=== PATIENT | female | born 1975 | race Caucasian/White ===

== ENCOUNTER → 2016-09-09 | Outpatient (CLI) | payer MEDICAID ==
--- NOTE | 2016-09-11 08:36 | MM ---
Reason for exam: screening (asymptomatic). Last mammogram was performed 1 year and 3 months ago. History: Patient had first child at age 35. Benign right mammotome panel of the right breast, November 10, 2009. Taking hormonal contraceptives for 14 years beginning at age 20. Physical Findings: A clinical breast exam by your physician is recommended on an annual basis and results should be correlated with mammographic findings. MG 3D Screening Mammo W/Cad Bilateral CC and MLO view(s) were taken. Prior study comparison: May 31, 2015, bilateral MG screening mammo w CAD. June 18, 2012, CAD bilateral diagnostic mammogram. September 25, 2009, bilateral digital screening mammogram. The breast tissue is heterogeneously dense. This may lower the sensitivity of mammography. Previous mammotome biopsy in the right breast. No significant changes when compared with prior studies. ASSESSMENT: Negative, BI-RAD 1 RECOMMENDATION: Routine screening mammogram of both breasts in 1 year.
== END | disposition home or self-care (01) ==
LOC: RADMAMWWP 08:09
PROVIDERS: ATTEND Family Medicine
DX: Z12.31 Encounter for screening mammogram for malignant neoplasm of breast (principal)
CPT/HCPCS: 77063; G0202

== ENCOUNTER → 2016-09-18 | Outpatient (CLI) | payer MEDICAID ==
[2016-09-18 10:58] LABS: Follicle Stimulating Hormone 7.3 mIU/mL; Prolactin 13.1 ng/mL (3.0-18.6)
== END | disposition home or self-care (01) ==
LOC: LABWHC1 09:10
PROVIDERS: ATTEND Internal Medicine Endocrinology, Diabetes & Metabolism
DX: E03.8 Other specified hypothyroidism (principal); R53.83 Other fatigue
CPT/HCPCS: 36415; 82306; 82533; 82607; 83001; 84146

== ENCOUNTER → 2017-09-10 | Outpatient (CLI) | payer MEDICAID | END | disposition home or self-care (01) | LOC: LABWHC1 09:06 | PROVIDERS: ATTEND Internal Medicine Endocrinology, Diabetes & Metabolism | DX: E03.8 Other specified hypothyroidism (principal) | CPT/HCPCS: 36415; 84443 ==

== ENCOUNTER → 2017-11-21 | Outpatient (CLI) | payer MEDICAID | END | disposition home or self-care (01) | LOC: LABWHC1 13:06 | PROVIDERS: ATTEND Dermatology Dermatopathology | DX: L40.0 Psoriasis vulgaris (principal); Z79.899 Other long term (current) drug therapy | CPT/HCPCS: 36415; 86480 ==

== ENCOUNTER → 2018-04-30 | Outpatient (CLI) | payer MEDICAID | LOC: LABWHC1 10:01 | PROVIDERS: ATTEND Internal Medicine Endocrinology, Diabetes & Metabolism | DX: E03.8 Other specified hypothyroidism (principal) | CPT/HCPCS: 36415; 84443 ==

== ENCOUNTER → 2018-11-17 | Outpatient (CLI) | payer MEDICAID | END | disposition home or self-care (01) | LOC: LABWHC1 15:14 | PROVIDERS: ATTEND Internal Medicine Endocrinology, Diabetes & Metabolism | DX: E03.8 Other specified hypothyroidism (principal) | CPT/HCPCS: 36415; 84443 ==

== ENCOUNTER → 2018-12-24 | Outpatient (CLI) | payer MEDICAID | END | disposition home or self-care (01) | LOC: LABWHC1 15:28 | PROVIDERS: ATTEND Dermatology Dermatopathology | DX: L40.0 Psoriasis vulgaris (principal); Z79.899 Other long term (current) drug therapy | CPT/HCPCS: 36415 ==

== ENCOUNTER → 2019-02-16 | Outpatient (CLI) | payer MEDICAID | END | disposition home or self-care (01) | LOC: LABWHC1 16:02 | PROVIDERS: ATTEND Internal Medicine Endocrinology, Diabetes & Metabolism | DX: E03.8 Other specified hypothyroidism (principal) | CPT/HCPCS: 36415; 84443 ==

== ENCOUNTER → 2019-03-24 | Outpatient (CLI) | payer MEDICAID ==
[2019-03-24 15:34] LABS: HGB 12.4 gm/dL (11.4-16.0); MCH 29.1 pg (25.0-35.0); MCHC 32.6 g/dL (31.0-37.0); MCV 89.2 fL (80.0-100.0); Mean Platelet Volume 7.9; Platelet Count 169 k/uL (150-450); RBC 4.26 m/uL (3.80-5.40); RDW 14.5 % (11.5-15.5); WBC 8.6 k/uL (3.8-10.6)
[2019-03-25 01:02] LABS: African American GFR (CKD) 90.1 (60.0-200.0); Albumin 3.9 g/dL (3.80-4.90); Albumin/Globulin Ratio 1.95 (1.60-3.17); Anion Gap 8.6 mmol/L (4.00-12.00); BUN/Creat Ratio 25.56 Ratio (12.00-20.00); Calcium 8.5 mg/dL (8.7-10.3); Carbon Dioxide 25.4 mmol/L (21.6-31.8); Potassium 4.4 mmol/L (3.5-5.5); Total Bilirubin 0.1 mg/dL (0.2-1.2); Total Protein 5.9 g/dL (6.2-8.2)
[2019-03-25 01:30] LABS: ACTH 19.7 pg/mL (0.00-45.99)
[2019-03-25 03:00] LABS: Thyroid Peroxidase Antibodies 52.2 U/mL (0.0-60.0)
== END | disposition home or self-care (01) ==
LOC: LABWHC1 15:13
PROVIDERS: ATTEND Internal Medicine Endocrinology, Diabetes & Metabolism
DX: E03.8 Other specified hypothyroidism (principal); R53.83 Other fatigue
CPT/HCPCS: 36415; 80053; 82024; 82533; 84146; 85027; 86376

== ENCOUNTER → 2019-06-16 | Outpatient (CLI) | payer MEDICAID ==
--- NOTE | 2019-06-18 11:14 | MM ---
Reason for exam: screening (asymptomatic). Last mammogram was performed 2 years and 9 months ago. History: Patient had first child at age 35. Benign right mammotome panel of the right breast, November 10, 2009. Taking hormonal contraceptives for 14 years beginning at age 20. Physical Findings: A clinical breast exam by your physician is recommended on an annual basis and results should be correlated with mammographic findings. MG 3D Screening Mammo W/Cad Bilateral CC and MLO view(s) were taken. Prior study comparison: September 09, 2016, bilateral MG 3d screening mammo w/cad. May 31, 2015, bilateral MG screening mammo w CAD. Stable benign calcifications. There is no discrete abnormality. No significant changes when compared with prior studies. ASSESSMENT: Benign, BI-RAD 2 RECOMMENDATION: Routine screening mammogram of both breasts in 1 year.
== END | disposition home or self-care (01) ==
LOC: RADMAMWWP 07:58
PROVIDERS: ATTEND Obstetrics & Gynecology
DX: Z12.31 Encounter for screening mammogram for malignant neoplasm of breast (principal)
CPT/HCPCS: 77063; 77067

== ENCOUNTER → 2019-08-03 | Outpatient (CLI) | payer MEDICAID ==
[2019-08-03 09:29] LABS: Basophils # (A) 0.1 k/uL (0-0.2); Basophils % (A) 1 %; Eosinophils # (A) 0.2 k/uL (0-0.7); Eosinophils % (A) 3 %; HCT 40.8 % (34.0-46.0); HGB 13.6 gm/dL (11.4-16.0); Lymphocytes # (A) 1.9 k/uL (1.0-4.8); Lymphocytes % (A) 30 %; MCH 29.6 pg (25.0-35.0); MCHC 33.4 g/dL (31.0-37.0); MCV 88.7 fL (80.0-100.0); Mean Platelet Volume 7.4; Monocytes # (A) 0.3 k/uL (0-1.0); Monocytes % (A) 4 %; Neutrophils # (A) 3.9 k/uL (1.3-7.7); Neutrophils % (A) 61 %; Platelet Count 202 k/uL (150-450); RDW 12.7 % (11.5-15.5); WBC 6.4 k/uL (3.8-10.6)
[2019-08-03 17:05] LABS: African American GFR (CKD) 103.2 (60.0-200.0); Albumin 4.1 g/dL (3.80-4.90); Albumin/Globulin Ratio 2.05 (1.60-3.17); Anion Gap 6.6 mmol/L (4.00-12.00); BUN/Creat Ratio 22.5 Ratio (12.00-20.00); Calcium 8.8 mg/dL (8.7-10.3); Carbon Dioxide 29.4 mmol/L (21.6-31.8); Chol/HDL Ratio 3.61; LDL Cholesterol,Calculated 95.8 mg/dL (0.0-131.0); Potassium 4.2 mmol/L (3.5-5.5); Total Bilirubin 0.4 mg/dL (0.2-1.2); Total Protein 6.1 g/dL (6.2-8.2); VLDL Calculation 24.2 mg/dL (5.00-40.00)
[2019-08-03 19:37] LABS: Hemoglobin A1C 5.4 % (4.0-6.0)
== END ==
LOC: LABWHC1 08:39
PROVIDERS: ATTEND Nurse Practitioner Family
DX: E03.9 Hypothyroidism, unspecified (principal); E55.9 Vitamin D deficiency, unspecified; R73.9 Hyperglycemia, unspecified
CPT/HCPCS: 36415; 80053; 80061; 82306; 83036; 84439; 84443; 85025

== ENCOUNTER → 2020-03-06 | Outpatient (CLI) | payer MEDICAID | END | disposition home or self-care (01) | LOC: LABWHC1 12:36 | PROVIDERS: ATTEND Dermatology Dermatopathology | DX: L40.0 Psoriasis vulgaris (principal); Z79.899 Other long term (current) drug therapy | CPT/HCPCS: 36415; 86480 ==

== ENCOUNTER → 2020-05-02 | Outpatient (CLI) | payer MEDICAID ==
[2020-05-02 14:10] LABS: Basophils # (A) 0.1 k/uL (0-0.2); Basophils % (A) 0 %; Eosinophils # (A) 0.2 k/uL (0-0.7); Eosinophils % (A) 1 %; HCT 43.3 % (34.0-46.0); HGB 13.9 gm/dL (11.4-16.0); Lymphocytes # (A) 1.9 k/uL (1.0-4.8); Lymphocytes % (A) 11 %; MCH 29.7 pg (25.0-35.0); MCHC 32.2 g/dL (31.0-37.0); MCV 92.4 fL (80.0-100.0); Mean Platelet Volume 7.4; Monocytes # (A) 0.7 k/uL (0-1.0); Monocytes % (A) 4 %; Neutrophils # (A) 14.7 k/uL (1.3-7.7); Neutrophils % (A) 84 %; Platelet Count 185 k/uL (150-450); RBC 4.68 m/uL (3.80-5.40); RDW 12.7 % (11.5-15.5); WBC 17.6 k/uL (3.8-10.6)
[2020-05-02 18:36] LABS: Erythrocyte Sedimentation Rate 59 mm/Hr (0-20)
[2020-05-02 20:20] LABS: African American GFR (CKD) 121.3 (60.0-200.0); Albumin/Globulin Ratio 1.74 (1.60-3.17); Anion Gap 10.9 mmol/L (4.00-12.00); BUN/Creat Ratio 15.71 Ratio (12.00-20.00); Carbon Dioxide 25.1 mmol/L (21.6-31.8); Globulin 2.3 g/dL (1.6-3.3); Non-African American GFR(CKD) 104.6 (60.0-200.0); Potassium 4.1 mmol/L (3.5-5.5); Total Bilirubin 0.5 mg/dL (0.3-1.2); Total Protein 6.3 g/dL (6.2-8.2)
== END | disposition home or self-care (01) ==
LOC: LABWHC1 13:01
PROVIDERS: ATTEND Internal Medicine
DX: K61.1 Rectal abscess (principal)
CPT/HCPCS: 36415; 80053; 85025; 85652

== ENCOUNTER → 2020-05-12 | Outpatient (CLI) | payer MEDICAID ==
--- NOTE | 2020-05-12 12:51 | CT ---
EXAMINATION TYPE: CT abdomen pelvis w con DATE OF EXAM: 05/12/2020 COMPARISON: None HISTORY: perirectal abscess CT DLP: 894.3 mGycm Automated exposure control for dose reduction was used. TECHNIQUE: Helical acquisition of images from the lung bases through the pelvis have been completed. CONTRAST: Performed with Oral Contrast and with IV Contrast, patient injected with 100 mL of Isovue 300. FINDINGS: There is an umbilical hernia containing fat. LUNG BASES: No significant abnormality is appreciated. AORTA: No significant abnormality is appreciated. LIVER/GB: No significant abnormality is appreciated. PANCREAS: No significant abnormality is seen. SPLEEN: No significant abnormality is seen. ADRENALS: No significant abnormality is seen. KIDNEYS: No significant abnormality is seen. REPRODUCTIVE ORGANS: No significant abnormality is seen, involuting follicle suspected within the ova sharita. Uterus is within normal limits. BOWEL: Mild rectal thickening is present. A discrete abscess is not identified.. Is no obstruction. 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 FREE AIR: No Free Air visible. ASCITES: None visible. PELVIC ADENOPATHY: None visualized. RETROPERITONEAL ADENOPATHY: No Retroperitoneal Adenopathy visible. URINARY BLADDER: Urinary bladder wall shows thickening, correlate to exclude cystitis. OSSEOUS STRUCTURES: No significant abnormality is seen. IMPRESSION: NONSPECIFIC WALL THICKENING ALONG THE RECTAL WALL COULD BE DUE TO LACK OF DISTENTION, MUSCULAR HYPERT ROPHY, INFLAMMATORY CHANGE, DISCRETE ABSCESS IS NOT IDENTIFIED WITH CERTAINTY. CORRELATE FOR CYSTITIS .
== END | disposition home or self-care (01) ==
LOC: RADCTMAIN 09:51
PROVIDERS: ATTEND Internal Medicine
DX: K62.89 Other specified diseases of anus and rectum (principal)
CPT/HCPCS: 74177; Q9967

== ENCOUNTER → 2020-11-23 | Outpatient (CLI) | payer MEDICAID ==
[2020-11-23 15:53] LABS: Basophils # (A) 0.07 X 10*3/uL (0.00-0.10); Basophils % (A) 0.8 %; Eosinophils # (A) 0.31 X 10*3/uL (0.04-0.35); Eosinophils % (A) 3.5 %; HCT 39.6 % (37.2-46.3); HGB 12.7 g/dL (12.0-15.0); Lymphocytes # (A) 2.15 X 10*3/uL (0.90-5.00); Lymphocytes % (A) 24.5 %; MCH 29.7 pg (27.0-32.0); MCHC 32.1 g/dL (32.0-37.0); MCV 92.5 fL (80.0-97.0); Mean Platelet Volume 10.3 fL (9.5-12.2); Monocytes # (A) 0.62 X 10*3/uL (0.20-1.00); Monocytes % (A) 7.1 %; Neutrophils # (A) 5.57 X 10*3/uL (1.80-7.70); Neutrophils % (A) 63.6 %; Platelet Count 188 X 10*3/uL (140-440); RBC 4.28 X 10*6/uL (4.10-5.20); RDW 13.1 % (11.5-14.5); WBC 8.76 X 10*3/uL (4.50-10.00)
[2020-11-23 19:56] LABS: African American GFR (CKD) 88.9 (60.0-200.0); BUN/Creat Ratio 14.44 Ratio (12.00-20.00); Calcium 8.4 mg/dL (8.7-10.3); Chol/HDL Ratio 3.77; LDL Cholesterol,Calculated 117.2 mg/dL (0.0-131.0); Non-African American GFR(CKD) 76.7 (60.0-200.0); Potassium 4.4 mmol/L (3.5-5.5); Total Bilirubin 0.5 mg/dL (0.2-1.2); VLDL Calculation 15.8 mg/dL (5.00-40.00)
[2020-11-23 22:09] LABS: Hemoglobin A1C 5.4 % (4.0-6.0)
== END | disposition home or self-care (01) ==
LOC: LABWHC1 08:34
PROVIDERS: ATTEND Internal Medicine
DX: I10 Essential (primary) hypertension (principal); E55.9 Vitamin D deficiency, unspecified; F41.9 Anxiety disorder, unspecified
CPT/HCPCS: 36415; 80053; 80061; 82306; 83036; 84443; 85025

== ENCOUNTER → 2021-01-04 | Outpatient (CLI) | payer MEDICAID ==
--- NOTE | 2021-01-08 09:11 | MM ---
Reason for exam: screening (asymptomatic). Last mammogram was performed 1 year and 7 months ago. History: Patient had first child at age 35. Benign right mammotome panel of the right breast, November 10, 2009. Took hormonal contraceptives for 14 years beginning at age 20. Physical Findings: A clinical breast exam by your physician is recommended on an annual basis and results should be correlated with mammographic findings. MG 3D Screening Mammo W/Cad Bilateral CC and MLO view(s) were taken. Prior study comparison: June 16, 2019, bilateral MG 3d screening mammo w/cad. September 09, 2016, bilateral MG 3d screening mammo w/cad. The breast tissue is heterogeneously dense. This may lower the sensitivity of mammography. Stable benign calcifications. There is no discrete abnormality. No significant changes when compared with prior studies. ASSESSMENT: Benign, BI-RAD 2 RECOMMENDATION: Routine screening mammogram of both breasts in 1 year.
== END | disposition home or self-care (01) ==
LOC: RADMAMWWP 09:41
PROVIDERS: ATTEND Obstetrics & Gynecology
DX: Z12.31 Encounter for screening mammogram for malignant neoplasm of breast (principal)
CPT/HCPCS: 77063; 77067

== ENCOUNTER → 2021-03-19 | Outpatient (CLI) | payer MEDICAID | END | disposition home or self-care (01) | LOC: LABWHC1 15:26 | PROVIDERS: ATTEND Dermatology Dermatopathology | DX: L40.0 Psoriasis vulgaris (principal); Z79.899 Other long term (current) drug therapy | CPT/HCPCS: 36415; 86480 ==

== ENCOUNTER → 2022-03-22 | Outpatient (CLI) | payer MEDICAID ==
--- NOTE | 2022-03-25 09:57 | MM ---
Reason for Exam: Screening (asymptomatic). Last mammogram was performed 1 year(s) and 3 month(s) ago. Patient History: Menarche at age 12. First Full-Term at age 35. Late child-bearing (after 30). Hormonal Contraceptives for 14 years from age 20 until age 34. 11/10/2009, Benign Core Biopsy on the right side. Risk Values: Nelsy 5 year model risk: 1.7%. NCI Lifetime model risk: 15.0%. Prior Study Comparison: 09/09/2016 Bilateral Screening Mammogram, [facility]. 06/16/2019 Bilateral Screening Mammogram, [facility]. 01/04/2021 Bilateral Screening Mammogram, [facility]. Tissue Density: The breast tissue is heterogeneously dense. This may lower the sensitivity of mammography. Findings: Analyzed By CAD. Core markers within the right breast. Scattered benign-appearing punctate calcification is present. Within the left medial lateral oblique view there is an irregular density within the medial portion on tomography. This is not identified on prior exams. Additional workup is recommended. Overall Assessment: Incomplete: need additional imaging evaluation, BI-RAD 0 Management: Diagnostic Mammogram of the left breast. A negative mammogram report should not preclude additional follow up of suspicious palpable abnormalities. Patient should continue monthly self breast exam. A clinical breast exam by your physician is recommended on an annual basis and results should be correlated with mammographic findings. Electronically signed and approved by: Timoteo Justin D.O. Radiologis
== END | disposition home or self-care (01) ==
LOC: RADMAMWWP 08:42
PROVIDERS: ATTEND Obstetrics & Gynecology
DX: Z12.31 Encounter for screening mammogram for malignant neoplasm of breast (principal)
CPT/HCPCS: 77063; 77067

== ENCOUNTER → 2022-03-27 | Outpatient (CLI) | payer MEDICAID ==
--- NOTE | 2022-03-27 14:17 | MM ---
Reason for Exam: Additional evaluation requested from abnormal screening. Last screening mammogram was performed less than 1 month ago. Patient History: Menarche at age 12. First Full-Term at age 35. Late child-bearing (after 30). Hormonal Contraceptives for 14 years from age 20 until age 34. 11/10/2009, Benign Core Biopsy on the right side. Last menstrual period: 03/12/2022 Risk Values: Nelsy 5 year model risk: 1.7%. NCI Lifetime model risk: 15.0%. Prior Study Comparison: 10/16/2009 Right Diagnostic Mammogram, [facility]. 06/13/2010 Right Diagnostic Mammogram, [facility]. 06/18/2012 Bilateral Diagnostic Mammogram, [facility]. 05/31/2015 Bilateral Screening Mammogram, [facility]. 09/09/2016 Bilateral Screening Mammogram, [facility]. 06/16/2019 Bilateral Screening Mammogram, [facility]. 01/04/2021 Bilateral Screening Mammogram, [facility]. 03/22/2022 Bilateral MG 3D screening mammo w/cad, [facility]. Tissue Density: Left: The breast tissue is heterogeneously dense. This may lower the sensitivity of mammography. Findings: Analyzed By CAD. Medial lateral view appears normal. No persistent spiculated density is identified on tomographic imaging or on the medial lateral view. Under compression the area disperses normally. Precautionary 6 month follow-up is recommended. Overall Assessment: Probably benign, BI-RAD 3 Management: Diagnostic Mammogram of the left breast in 6 months. A clinical breast exam by your physician is recommended on an annual basis and results should be correlated with mammographic findings. This exam should not preclude additional follow-up of suspicious palpable abnormalities. Results were given to the patient verbally at the time of exam. Electronically signed and approved by: Timoteo Justin D.O. Radiologis
== END | disposition home or self-care (01) ==
LOC: RADMAMWWP 13:46
PROVIDERS: ATTEND Obstetrics & Gynecology
DX: R92.8 Other abnormal and inconclusive findings on diagnostic imaging of breast (principal)
CPT/HCPCS: 77061; 77065

== ENCOUNTER → 2022-03-28 | Outpatient (CLI) | payer MEDICAID | END | disposition home or self-care (01) | LOC: LABWHC1 13:03 | PROVIDERS: ATTEND Dermatology Procedural Dermatology | DX: L40.0 Psoriasis vulgaris (principal); Z79.899 Other long term (current) drug therapy | CPT/HCPCS: 36415; 86480 ==

== ENCOUNTER → 2022-08-13 | Outpatient (CLI) | payer MEDICAID ==
[2022-08-13 11:10] LABS: Amorphous Sediment,Urine Moderate /hpf; Appearance,Urine Cloudy (Clear); Bacteria,Urine Rare /hpf; Bilirubin,Urine Negative (Negative); Blood,Urine Negative (Negative); Color,Urine Light Yellow; Glucose,Urine (UA) Negative (Negative); Ketones,Urine Negative (Negative); Leukocyte Esterase,Urine Negative (Negative); Mucus,Urine Rare /hpf; Nitrite,Urine Negative (Negative); PH, Urine 5.5 (5.0-8.0); Protein,Urine Negative (Negative); RBC,Urine 2 /hpf (0-5); Specific Gravity,Urine 1.018 (1.001-1.035); Squamous Epithelial Cell,Urine 11 /hpf (0-4); Urobilinogen,Urine <2.0 mg/dL (<2.0); WBC,Urine 3 /hpf (0-5)
[2022-08-13 14:28] LABS: Basophils % (A) 1.3 %; Eosinophils # (A) 0.68 X 10*3/uL (0.04-0.35); HCT 42.3 % (37.2-46.3); HGB 13.5 g/dL (12.0-15.0); Immature Grans, Automated 0.3 %; Lymphocytes # (A) 2.56 X 10*3/uL (0.90-5.00); Lymphocytes % (A) 33.7 %; MCH 29.5 pg (27.0-32.0); MCHC 31.9 g/dL (32.0-37.0); MCV 92.4 fL (80.0-97.0); Mean Platelet Volume 10.3 fL (9.5-12.2); Monocytes % (A) 7.9 %; NRBC Per 100 WBC 0 /100 WBCS (0.0-0.0); Neutrophils # (A) 3.63 X 10*3/uL (1.80-7.70); Neutrophils % (A) 47.8 %; Platelet Count 221 X 10*3/uL (140-440); RBC 4.58 X 10*6/uL (4.10-5.20); RDW 13.2 % (11.5-14.5); WBC 7.59 X 10*3/uL (4.50-10.00)
[2022-08-13 14:44] LABS: Follicle Stimulating Hormone 24.1 mIU/mL; Luteinizing Hormone 18.3 mIU/mL
[2022-08-13 15:10] LABS: African American GFR (CKD) 91.8 (60.0-200.0); BUN/Creat Ratio 20.67 Ratio (12.00-20.00); Blood Urea Nitrogen 17.9 mg/dL (9.0-27.0); Calcium 9.2 mg/dL (8.7-10.3); Carbon Dioxide 24.8 mmol/L (20.0-27.5); Chloride 101 mmol/L (96-109); Chol/HDL Ratio 3.84 Ratio; Glucose 93 mg/dL (70-110); LDL Cholesterol,Calculated 138.5 mg/dL (0.0-131.0); Non-African American GFR(CKD) 79.2 (60.0-200.0); Potassium 4.3 mmol/L (3.5-5.5); Sodium 139 mmol/L (135-145)
== END | disposition home or self-care (01) ==
LOC: LABWHC1 09:04
PROVIDERS: ATTEND Internal Medicine
DX: Z78.0 Asymptomatic menopausal state (principal); I10 Essential (primary) hypertension; F41.9 Anxiety disorder, unspecified; R00.0 Tachycardia, unspecified
CPT/HCPCS: 36415; 80048; 80061; 81001; 83001; 83002; 83036; 83735; 84439; 84443; 85025

== ENCOUNTER → 2022-12-09 | Outpatient (CLI) | payer MEDICAID ==
--- NOTE | 2022-12-09 10:05 | XR ---
EXAMINATION TYPE: XR wrist complete RT, XR hand complete RT DATE OF EXAM: 12/09/2022 CLINICAL HISTORY: Fall injury with pain TECHNIQUE: Frontal, lateral and oblique images of the right wrist and hand are obtained. The fourth scaphoid view is acquired. COMPARISON: None. FINDINGS: No acute fracture or dislocation in the right wrist. The carpal joint spaces are preserved . Overlying soft tissue is unremarkable. There is no acute fracture/dislocation evident in the right hand. The joint spaces in the right hand appear within normal limits. The overlying soft tissue appears unremarkable. IMPRESSION: There is no acute fracture or dislocation in the right wrist or hand.
== END | disposition home or self-care (01) ==
LOC: RADXRMAIN 09:24
PROVIDERS: ATTEND Family Medicine
DX: S63.501A Unspecified sprain of right wrist, initial encounter (principal)

== ENCOUNTER → 2023-01-07 | Outpatient (CLI) | payer MEDICAID ==
[2023-01-07 15:05] LABS: Basophils # (A) 0.06 X 10*3/uL (0.00-0.10); Basophils % (A) 0.8 %; Eosinophils # (A) 0.26 X 10*3/uL (0.04-0.35); Eosinophils % (A) 3.5 %; HCT 41.3 % (37.2-46.3); HGB 13.3 g/dL (12.0-15.0); Immature Grans, Automated 0.4 %; Lymphocytes # (A) 2.39 X 10*3/uL (0.90-5.00); Lymphocytes % (A) 31.9 %; MCH 29.5 pg (27.0-32.0); MCHC 32.2 g/dL (32.0-37.0); MCV 91.6 fL (80.0-97.0); Mean Platelet Volume 10.3 fL (9.5-12.2); Monocytes # (A) 0.55 X 10*3/uL (0.20-1.00); Monocytes % (A) 7.3 %; NRBC Per 100 WBC 0 /100 WBCS (0.0-0.0); Neutrophils % (A) 56.1 %; Platelet Count 209 X 10*3/uL (140-440); RBC 4.51 X 10*6/uL (4.10-5.20); RDW 12.7 % (11.5-14.5); WBC 7.49 X 10*3/uL (4.50-10.00)
[2023-01-07 15:31] LABS: Appearance,Urine Clear (Clear); Bilirubin,Urine Negative (Negative); Blood,Urine Negative (Negative); Color,Urine Yellow (Yellow); Ketones,Urine Negative (Negative); Nitrite,Urine Negative (Negative); Specific Gravity,Urine 1.016 (1.001-1.030); Urobilinogen,Urine 0.2 (0.2,1.0)
[2023-01-07 15:44] LABS: ALT 16 U/L (8-44); AST 15 U/L (13-35); African American GFR (CKD) 118.7 (60.0-200.0); Albumin 4.1 g/dL (3.8-4.9); Albumin/Globulin Ratio 1.64 (1.60-3.17); Alkaline Phosphatase 121 U/L (41-126); BUN/Creat Ratio 15.71 Ratio (12.00-20.00); Carbon Dioxide 26.2 mmol/L (20.0-27.5); Chloride 101 mmol/L (96-109); Follicle Stimulating Hormone 20.4 mIU/mL; Globulin 2.5 g/dL (1.6-3.3); Glucose 83 mg/dL (70-110); LDL Cholesterol,Calculated 61.8 mg/dL (0.0-131.0); Magnesium 1.7 mg/dL (1.5-2.4); Non-African American GFR(CKD) 102.5 (60.0-200.0); Potassium 4.8 mmol/L (3.5-5.5); Sodium 139 mmol/L (135-145); Total Protein 6.6 g/dL (6.2-8.2); VLDL Calculation 15.74 mg/dL (5.00-40.00)
[2023-01-07 15:49] LABS: Luteinizing Hormone 73.6 mIU/mL
== END | disposition home or self-care (01) ==
LOC: LABWHC1 08:48
PROVIDERS: ATTEND Internal Medicine
DX: Z00.00 Encounter for general adult medical examination without abnormal findings (principal); E55.9 Vitamin D deficiency, unspecified; Z78.0 Asymptomatic menopausal state; I10 Essential (primary) hypertension; F41.9 Anxiety disorder, unspecified; L40.0 Psoriasis vulgaris; R00.0 Tachycardia, unspecified
CPT/HCPCS: 36415; 80053; 80061; 81003; 82306; 83001; 83002; 83036; 83735; 84443; 85025

== ENCOUNTER 2023-02-03 18:13 | Emergency (ER) | payer MEDICAID ==
[2023-02-03 18:32] VITALS: RESP 18
[2023-02-03] MEDS ORDERED: IBUPROFEN 800 MG TAB PO STA (19:23)
--- NOTE | 2023-02-03 19:54 | CT ---
EXAMINATION TYPE: CT brain cspine wo con CT DLP: 1340.8 mGycm, Automated exposure control for dose reduction was used. DATE OF EXAM: 02/03/2023 7:44 PM COMPARISON: None. CLINICAL INDICATION:Female, 47 years old with history of pain; pain after fall. Laceration to back of head TECHNIQUE: Brain: Multiple axial CT images of the brain were obtained without IV contrast. Cspine: Axial CT images from the skull base to the inferior aspect of T2 we obtained without intraven ous contrast. Coronal and sagittal reformatted images were also reviewed. FINDINGS: Brain: Extra-axial spaces: No abnormal extra-axial fluid collections. Ventricular system: Within normal limits Cerebral parenchyma: No acute intraparenchymal hemorrhage or mass effect. The de la vega-white junction is well differentiated. Cerebellum: Unremarkable. Mass effect: No evidence of midline shift. Intracranial vasculature: unremarkable Soft tissues: Posterior scalp edema. Small hematoma measuring 42 x 5 mm. Calvarium/osseous structures: No depressed skull fracture. Paranasal sinuses and mastoid air cells: Mild scattered mucosal thickening and or secretions. Visualized orbits: Orbital contents are intact. Cervical spine: Fracture: None. Osseous structures: Unremarkable Vertebral alignment: Within normal limits. Spinal canal/Neural Foramina: No evidence of significant spinal canal narrowing. No evidence for sign ificant neural foraminal stenosis. Neck soft tissues: Prevertebral soft tissues are within normal limits. Other: The airway is patent. The lung apices are clear. IMPRESSION: 1. No acute intracranial process. 2. Posterior scalp edema/hematoma 3. No evidence of cervical spine fracture.
[2023-02-03] MEDS ORDERED: TRANEXAMIC ACID 1,000 MG/10 ML VIAL IRRIGATION ONE ×2 (20:37→21:00)
--- NOTE | 2023-02-03 20:42 | ED ---
General Adult HPI - General Chief complaint: Head Injury Stated complaint: Fall-head injury Time Seen by Provider: 02/03/23 19:05 Source: patient, RN notes reviewed Mode of arrival: ambulatory Limitations: no limitations - History of Present Illness Initial comments: 47-year-old female with no significant past medical history presents to the emergency department with a chief complaint of fall. Patient reports that she was ice skating when she lost her footing and tripped and fell onto the back of her head. She is complaining of a scalp laceration. She denies any loss of consciousness or anticoagulant use. She denies any dizziness, lightheaded, headache, vision loss, vision changes, nausea, vomiting. - Related Data Home Medications Medication Instructions Recorded Confirmed Albuterol Sulfate [Proair Hfa] 2 puff INHALATION DIRECTED PRN 04/12/14 11/25/14 Levothyroxine Sodium [Synthroid] 88 mcg PO DAILY 04/12/14 11/25/14 ALPRAZolam [Xanax] 0.25 mg PO DAILY 11/25/14 11/25/14 Cetirizine HCl [Zyrtec] 10 mg PO DAILY 11/25/14 11/25/14 Sertraline HCl [Zoloft] 50 mg PO DAILY 11/25/14 11/25/14 Allergies Allergy/AdvReac Type Severity Reaction Status Date / Time Penicillins Allergy Dyspnea Verified 11/25/14 14:22 sumatriptan [From Imitrex] Allergy Dyspnea Verified 11/25/14 14:22 sumatriptan succinate Allergy Dyspnea Verified 11/25/14 14:22 [From Imitrex] Review of Systems ROS Statement: Those systems with pertinent positive or pertinent negative responses have been documented in the HPI. ROS Other: All systems not noted in ROS Statement are negative. Past Medical History Past Medical History: Asthma, Thyroid Disorder Additional Past Medical History / Comment(s): Patient has a history of migraine headaches. History of Any Multi-Drug Resistant Organisms: None Reported Past Surgical History: Breast Surgery, Section, Tubal Ligation Additional Past Surgical History / Comment(s): SINUS SX. medical history - migraines Additional Past Anesthesia/Blood Transfusion Reaction / Comment(s): STATES [facility] DURING SINUS SX "MADE ME AGGITATED AND GAVE ME THE CREEPY CRAWLIES" Past Psychological History: Depression Smoking Status: Never smoker Past Alcohol Use History: Occasional Past Drug Use History: None Reported General Exam - General Exam Comments Initial Comments: General: Alert, in no acute distress Head: atraumatic normocephalic. Eyes PERRL, EOMI intact, mucous membranes moist, and a half centimeter linear laceration to occipital region of the head with minor bleeding. Respiratory: Lungs clear to auscultation bilaterally Cardiovascular: Heart rate regular rate and rhythm Abdominal: Soft without guarding or rebound Extremities: Normal inspection with full range of motion and normal capillary refill Neuroogic: alert and oriented 3, CN II-XII intact, able to ambulate with steady gait Skin: warm dry and intact with normal color Limitations: no limitations Course Vital Signs 02/03/23 02/03/23 18:27 21:45 Temperature 98.0 F 97.8 F Pulse Rate 82 64 Respiratory 18 18 Rate Blood Pressure 141/92 144/86 O2 Sat by Pulse 98 98 Oximetry Medical Decision Making - Medical Decision Making Was pt. sent in by a medical professional or institution (, PA, TILE SETTER, urgent care, hospital, or care home...) When possible be specific @ -[No] Did you speak to anyone other than the patient for history (EMS, parent, family, police, friend...)? What history was obtained from this source @ -[No] Did you review nursing and triage notes (agree or disagree)? Why? @ -[I reviewed and agree with nursing and triage notes] Were old charts reviewed (outside hosp., previous admission, EMS record, old EKG, old radiological studies, urgent care reports/EKG's, care home records)? Report findings @ -[No old charts were reviewed] Differential Diagnosis (chest pain, altered mental status, abdominal pain women, abdominal pain men, vaginal bleeding, weakness, fever, dyspnea, syncope, headache, dizziness, GI bleed, back pain, seizure, CVA, palpatations, mental health, musculoskeletal)? @ -[not applicable] EKG interpreted by me (3pts min.). @ -[As above] X-rays interpreted by me (1pt min.). @ -[None done] CT interpreted by me (1pt min.). @ -CT brain and C-spine negative for any evidence of fracture or dislocation or intracranial process U/S interpreted by me (1pt. min.). @ -[None done] What testing was considered but not performed or refused? (CT, X-rays, U/S, labs)? Why? @ -[None] What meds were considered but not given or refused? Why? @ -[None] Did you discuss the management of the patient with other professionals (professionals i.e. , PA, TILE SETTER, lab, RT, psych nurse, social work specialist, flare maker, teacher, police booking officer, bottle caser)? Give summary @ -[No] Was smoking cessation discussed for >3mins.? @ -[No] Was critical care preformed (if so, how long)? @ -[No] Were there social determinants of health that impacted care today? How? (Homelessness, low income, unemployed, alcoholism, drug addiction, transp ortation, low edu. Level, literacy, decrease access to med. care, penitentiary, rehab)? @ -[No] Was there de-escalation of care discussed even if they declined (Discuss DNR or withdrawal of care, Hospice)? DNR status @ -[No] What co-morbidities impacted this encounter? (DM, HTN, Smoking, COPD, CAD, Cancer, CVA, ARF, Chemo, Hep., AIDS, mental health diagnosis, sleep apnea, morbid obesity)? @ -[None] Was patient admitted / discharged? Hospital course, mention meds given and route, prescriptions, significant lab abnormalities, going to OR and other pertinent info. @ Discharged. This is a 47-year-old female who presents the emergency department with fall. Patient had a thorough history and physical exam performed on the ED. Heart rate regular rate and rhythm, lungs clear to auscultation bilaterally, abdomen soft nontender. There is a 2.5 cm linear lace ration to the back occipital region of the patient's head. Patient had 11 jose manuel placed which she tolerated well. Patient had imaging which was essentially negative. I discussed the results in detail with the patient verbalized understanding and all questions were addressed. Return precautions were discussed at length. She will be discharged in stable condition. Case discussed with Dr. Hampton [facility] who agrees with plan of care Undiagnosed new problem with uncertain prognosis? @ -[No] Drug Therapy requiring intensive monitoring for toxicity (Heparin, Nitro, Insulin, Cardizem)? @ -[No] Were any procedures done? @ -[No] Diagnosis/symptom? @ -Laceration - Fall Acute, or Chronic, or Acute on Chronic? @ -Acute Uncomplicated (without systemic symptoms) or Complicated (systemic symptoms)? @ -Uncomplicated Side effects of treatment? @ -[No] Exacerbation, Progression, or Severe Exacerbation? @ -[No] Poses a threat to life or bodily function? How? (Chest pain, [place], SD, pneumonia, PE, COPD, DKA, ARF, appy, cholecystitis, CVA, Diverticulitis, Homicidal, Suicidal, threat to staff... and all critical care pts) @ -Low likelihood Disposition Clinical Impression: Laceration of scalp, Closed head injury Disposition: HOME SELF-CARE Condition: Stable Instructions (If sedation given, give patient instructions): Laceration (ED), Concussion (ED), Staple Care (ED) Additional Instructions: Please return to the nearest emergency department if symptoms persist Is patient prescribed a controlled substance at d/c from ED?: No Referrals: Onofre Amin MD [Primary Care Provider] - 1-2 days Time of Disposition: 20:42
[2023-02-03 21:47] VITALS: BP 144/86; PULSE 64; TEMP 97.8
== END 2023-02-03 21:46 | disposition home or self-care (01) ==
LOC: EC 18:13
DX: S01.01XA Laceration without foreign body of scalp, initial encounter (principal); J45.909 Unspecified asthma, uncomplicated; E07.9 Disorder of thyroid, unspecified; F32.A Depression, unspecified; Z79.890 Hormone replacement therapy; Z79.899 Other long term (current) drug therapy; Z88.0 Allergy status to penicillin; Z88.8 Allergy status to other drugs, medicaments and biological substances
CPT/HCPCS: 70450; 72125; 99284

== ENCOUNTER → 2023-02-07 | Outpatient (CLI) | payer MEDICAID ==
--- NOTE | 2023-02-07 09:06 | US ---
EXAMINATION TYPE: US thyroid st tissue head/neck DATE OF EXAM: 02/07/2023 COMPARISON: US dated 03/23/2015 CLINICAL INDICATION: Female, 47 years old with history of E04.1 NONTOXIC SINGLE THYROID NODULE; GLAND SIZE: Right Lobe: 4.4 x 1.5 x 1.4 cm Overall Parenchyma: homogenous Left Lobe: 3.9 x 1.4 x 1.6 cm Overall Parenchyma: homogeneous Isthmus Thickness: 0.2 cm NODULES RIGHT: # of nodules measured on right: 0 LEFT: # of nodules measured on left: 2 1. 0.9 X 0.5 x 0.9 cm, lower mid, solid or almost completely solid, hypoechoic nodule, which is wid er than tall, with smooth margins, without echogenic foci. Prior size: 0.8 x 0.4 x 0.5 cm 2. 0.5 X 0.3 x 0.5 cm, lower mid, solid or almost completely solid, hypoechoic nodule, which is wi sheeba than tall, with smooth margins, without echogenic foci. Prior size: 0.6 x 0.4 x 0.9 cm ISTHMUS: # of nodules measured in the isthmus: 0 Bilateral neck scanned, no evidence of lymphadenopathy. IMPRESSION: TR4 nodules moderately suspicious. Follow with greater than or equal to 1 cm. Fine-needle aspiration is greater than or equal to 1.5 cm. 2017 ACR TI-RADS LEVEL: TR4 *Highest TI-RADS level nodule reported
== END | disposition home or self-care (01) ==
LOC: RADUSWWP 08:26
PROVIDERS: ATTEND Internal Medicine
DX: E04.1 Nontoxic single thyroid nodule (principal)
CPT/HCPCS: 76536

== ENCOUNTER → 2023-04-23 | Outpatient (CLI) | payer MEDICAID | END | disposition home or self-care (01) | LOC: LABWHC1 16:24 | PROVIDERS: ATTEND Dermatology | DX: L40.0 Psoriasis vulgaris (principal); Z79.899 Other long term (current) drug therapy | CPT/HCPCS: 36415; 86480 ==

== ENCOUNTER → 2023-06-18 | Outpatient (CLI) | payer MEDICAID ==
--- NOTE | 2023-06-18 09:24 | MM ---
Reason for Exam: Follow-up at short interval from prior study. Last mammogram was performed 1 year(s) and 3 month(s) ago. Patient History: Menarche at age 12. First Full-Term at age 35. Late child-bearing (after 30). Perimenopausal. Hormonal Contraceptives for 14 years from age 20 until age 34. 11/10/2009, Benign Core Biopsy on the right side. Last menstrual period: 06/01/2023 Risk Values: Nelsy 5 year model risk: 1.7%. NCI Lifetime model risk: 14.7%. Prior Study Comparison: 09/09/2016 Bilateral Screening Mammogram, [facility]. 06/16/2019 Bilateral Screening Mammogram, [facility]. 01/04/2021 Bilateral Screening Mammogram, [facility]. 03/22/2022 Bilateral MG 3D screening mammo w/cad, [facility]. 03/27/2022 Left MG 3D work up w/cad LT, [facility]. Tissue Density: The breast tissue is extremely dense which could obscure a lesion on mammography. Findings: Analyzed By CAD. No new suspicious masses or architectural distortion or groupings of calcifications within either breast. Benign-appearing calcifications within both breasts. Biopsy clip within the right breast. Overall Assessment: Benign, BI-RAD 2 Management: Screening Mammogram of both breasts in 1 year. A clinical breast exam by your physician is recommended on an annual basis and results should be correlated with mammographic findings. This exam should not preclude additional follow-up of suspicious palpable abnormalities. Results were given to the patient verbally at the time of exam. Note on Nelsy scores and lifetime risk: 1. A Nelsy score greater than 3% is considered moderate risk. If this is the case, consider specialist referral to assess eligibility for a risk reducing agent. If overall lifetime risk for the development of breast cancer is 20% or higher, the patient may qualify for future screening with alternating mammogram and breast MRI. Electronically signed and approved by: Atif Alva D.O.
== END | disposition home or self-care (01) ==
LOC: RADMAMWWP 09:00
PROVIDERS: ATTEND Obstetrics & Gynecology
DX: R92.333 Mammographic heterogeneous density, bilateral breasts (principal)
CPT/HCPCS: 77062; 77066

== ENCOUNTER → 2023-09-03 | Outpatient (CLI) | payer MEDICAID ==
[2023-09-03 09:33] LABS: Appearance,Urine Clear (Clear); Bilirubin,Urine Negative (Negative); Blood,Urine Negative (Negative); Color,Urine Colorless; Glucose,Urine (UA) Negative (Negative); Ketones,Urine Negative (Negative); Leukocyte Esterase,Urine Negative (Negative); Nitrite,Urine Negative (Negative); Protein,Urine Negative (Negative); Specific Gravity,Urine 1.014 (1.001-1.035); Urobilinogen,Urine <2.0 mg/dL (<2.0)
[2023-09-03 15:29] LABS: ALT 15 U/L (8-44); AST 18 U/L (13-35); Albumin 4.2 g/dL (3.8-4.9); Alkaline Phosphatase 120 U/L (41-126); BUN/Creat Ratio 20.71 Ratio (12.00-20.00); Basophils # (A) 0.08 X 10*3/uL (0.00-0.10); Blood Urea Nitrogen 14.5 mg/dL (9.0-27.0); Calcium 9.3 mg/dL (8.7-10.3); Carbon Dioxide 26.3 mmol/L (21.6-31.8); Chloride 100 mmol/L (96-109); Chol/HDL Ratio 1.97 Ratio; Eosinophils # (A) 0.25 X 10*3/uL (0.04-0.35); Eosinophils % (A) 3.2 %; Globulin 2.8 g/dL (1.6-3.3); Glucose 105 mg/dL (70-110); HCT 42.8 % (37.2-46.3); HGB 14.2 g/dL (12.0-15.0); LDL Cholesterol,Calculated 59.8 mg/dL (0.0-131.0); Lymphocytes # (A) 2.51 X 10*3/uL (0.90-5.00); Lymphocytes % (A) 32.1 %; MCH 29.1 pg (27.0-32.0); MCHC 33.2 g/dL (32.0-37.0); MCV 87.7 FL (80.0-97.0); Magnesium 1.9 mg/dL (1.5-2.4); Mean Platelet Volume 9.9 FL (9.5-12.2); Monocytes # (A) 0.58 X 10*3/uL (0.20-1.00); Monocytes % (A) 7.4 %; NRBC Per 100 WBC 0 X 10*3/uL (0.00-0.01); Neutrophils # (A) 4.39 X 10*3/uL (1.80-7.70); Platelet Count 199 X 10*3/uL (140-440); Potassium 4.2 mmol/L (3.5-5.5); RBC 4.88 X 10*6/uL (4.10-5.20); RDW 12.9 % (11.5-14.5); Sodium 138 mmol/L (135-145); Total Bilirubin 0.5 mg/dL (0.3-1.2); VLDL Calculation 11.58 mg/dL (5.00-40.00); WBC 7.83 X 10*3/uL (4.50-10.00)
== END | disposition home or self-care (01) ==
LOC: LABWHC1 08:45
PROVIDERS: ATTEND Internal Medicine
DX: I10 Essential (primary) hypertension (principal); E78.2 Mixed hyperlipidemia; E55.9 Vitamin D deficiency, unspecified; E04.1 Nontoxic single thyroid nodule; L40.0 Psoriasis vulgaris; R35.0 Frequency of micturition
CPT/HCPCS: 36415; 80053; 80061; 81003; 82306; 83036; 83735; 84443; 85025

== ENCOUNTER 2023-11-14 09:52 | Day surgery (SDC) | payer MEDICAID ==
[2023-11-14] MEDS: LACTATED RINGERS 1,000 ML IV SCH (10:13)
[2023-11-14 10:22] VITALS: TEMP 97.5
[2023-11-14] MEDS ORDERED: PROPOFOL 10 MG/ML 20 ML VIAL IV ONE (10:48)
[2023-11-14] MEDS ORDERED: LIDOCAINE 1% INJ 10MG/ML (20 ML MDV) ONE (10:48)
--- NOTE | 2023-11-14 11:07 | P.PCN ---
Date of Procedure: 11/14/23 Procedure(s) Performed: BRIEF HISTORY: Patient is a 48-year-old pleasant white female scheduled for an elective colonoscopy as a part of screening for colon cancer. PROCEDURE PERFORMED: Colonoscopy. PREOPERATIVE DIAGNOSIS: screening for colon cancer. IV sedation per Anesthesia. PROCEDURE: After informed consent was obtained, the patient, was brought into the endoscopy unit. IV sedation was administered by Anesthesia under continuous monitoring. Digital rectal examination was normal. Initially the Olympus CF-160 flexible video colonoscope was then inserted in the rectum, gradually advanced into the cecum without any difficulty. Careful examination was performed as the scope was gradually being withdrawn. Ileocecal valve and the appendiceal orifice were visualized and appeared normal. Prep was excellent. Mucosa of the cecum, ascending colon, transverse colon, descending colon, sigmoid colon, and rectum appeared normal. Retroflexion was performed in the rectum and no lesions were seen. The patient tolerated the procedure well. IMPRESSION: Normal-appearing colon from rectum to cecum with no evidence of colorectal neoplasia. RECOMMENDATIONS: Findings of this examination were discussed with the patient as well as a family. She was advised to have a repeat screening colonoscopy in 10 years.. 48
[2023-11-14 11:38] VITALS: BP 154/95; PULSE 76; RESP 16
== END 2023-11-14 11:42 | disposition home or self-care (01) ==
LOC: ORWHC2ENDO 09:52
PROVIDERS: ATTEND Internal Medicine Gastroenterology
DX: Z12.11 Encounter for screening for malignant neoplasm of colon (principal); I10 Essential (primary) hypertension; E78.5 Hyperlipidemia, unspecified; E07.9 Disorder of thyroid, unspecified; F41.9 Anxiety disorder, unspecified; G43.909 Migraine, unspecified, not intractable, without status migrainosus; Z88.0 Allergy status to penicillin; Z79.899 Other long term (current) drug therapy; Z88.6 Allergy status to analgesic agent; Z98.890 Other specified postprocedural states; Z79.51 Long term (current) use of inhaled steroids
CPT/HCPCS: 81025; 45378; J2001; J2704

== ENCOUNTER 2024-01-13 07:17 | Emergency (ER) | payer MEDICAID ==
--- NOTE | 2024-01-13 07:49 | ED ---
General Adult HPI - General Chief complaint: Wound/Laceration Stated complaint: Skin Abscess Time Seen by Provider: 01/13/24 07:28 Source: patient, RN notes reviewed, old records reviewed Mode of arrival: ambulatory Limitations: no limitations - History of Present Illness Initial comments: 48-year-old female with pain and swelling near the anus. Patient states this has been there for approximately 5 days. No fever. She states she has had similar issue in the past which did drain spontaneously. No abdominal pain. - Related Data Home Medications Medication Instructions Recorded Confirmed Cetirizine HCl [Zyrtec] 10 mg PO DAILY 11/25/14 11/14/23 Atorvastatin [Lipitor] 40 mg PO DAILY 11/12/23 11/14/23 Cholecalciferol [Vitamin D3 (125 125 mcg PO DAILY 11/12/23 11/14/23 Mcg = 5000 Iu)] Frankincense 1 tab PO DAILY 11/12/23 11/14/23 Guselkumab [Tremfya] 100 mg SQ Q60D 11/12/23 11/14/23 Venlafaxine HCl [Effexor] 75 mg PO DAILY 11/12/23 11/14/23 Biotin [Biotin Disolve] 5,000 mcg PO DAILY 11/14/23 11/14/23 Losartan [Cozaar] 50 mg PO DAILY 11/14/23 11/14/23 Previous Rx's Medication Instructions Recorded Clindamycin [Cleocin] 300 mg PO TID #42 cap 01/13/24 Allergies Allergy/AdvReac Type Severity Reaction Status Date / Time Penicillins Allergy Dyspnea Verified 01/13/24 07:29 sumatriptan [From Imitrex] Allergy Dyspnea Verified 01/13/24 07:29 sumatriptan succinate Allergy Dyspnea Verified 01/13/24 07:29 [From Imitrex] Review of Systems ROS Statement: Those systems with pertinent positive or pertinent negative responses have been documented in the HPI. ROS Other: All systems not noted in ROS Statement are negative. Past Medical History Past Medical History: Hyperlipidemia, Hypertension, Skin Disorder, Thyroid Disorder Additional Past Medical History / Comment(s): migraine headaches, psoriatic arthritis, no longer needs thyroid med., psoriasis History of Any Multi-Drug Resistant Organisms: None Reported Past Surgical History: Breast Surgery, Section, Tubal Ligation Additional Past Surgical History / Comment(s): SINUS SX, breast bx., wisdom teeth removed Past Anesthesia/Blood Transfusion Reactions: Postoperative Nausea & Vomiting (PONV) Additional Past Anesthesia/Blood Transfusion Reaction / Comment(s): STATES ONE MED DURING SINUS SX "MADE ME AGITATED AND GAVE ME THE CREEPY CRAWLIES" Past Psychological History: Anxiety Smoking Status: Former smoker General Exam Limitations: no limitations General appearance: alert, in no apparent distress Head exam: Present: atraumatic, normocephalic Eye exam: Present: normal appearance, PERRL Respiratory exam: Present: normal lung sounds bilaterally. Absent: respiratory distress, wheezes Cardiovascular Exam: Present: regular rate, normal rhythm GI/Abdominal exam: Present: soft. Absent: distended, tenderness, guarding Rectal exam: Present: hemorrhoids, other (2 cm fluctuant abscess on the left adjacent to the anus no surrounding cellulitis, no induration) Extremities exam: Present: normal inspection Back exam: Present: normal inspection Course Vital Signs 01/13/24 07:27 Temperature 99.0 F Pulse Rate 102 H Respiratory 16 Rate Blood Pressure 135/85 O2 Sat by Pulse 99 Oximetry Procedures - Incision & Drainage Consent Obtained: verbal consent Indication: Perianal abscess Anesthetic Used: lidocaine 1% Amount (mLs): 3 I&D Cleaning Method: Chloroprep Sterile Field Used?: No Ultrasound used: No Needle Aspiration Performed?: Yes Irrigation Performed?: Yes I&D Drainage Obtained: Pus Patient Tolerated Procedure: well Medical Decision Making - Medical Decision Making Was pt. sent in by a medical professional or institution (SRIRAM Hope, COMPUTER SECURITY MANAGER, urgent care, hospital, or correction...) When possible be specific @ -No Did you speak to anyone other than the patient for history (EMS, parent, family, police, friend...)? What history was obtained from this source @ -No Did you review nursing and triage notes (agree or disagree)? Why? @ -I reviewed and agree with nursing and triage notes Were old charts reviewed (outside hosp., previous admission, EMS record, old EKG, old radiological studies, urgent care reports/EKG's, correction records)? Report findings @ -No old charts were reviewed Differential Diagnosis hemorrhoid, perirectal abscess, perianal abscess EKG interpreted by me (3pts min.). @ -As above X-rays interpreted by me (1pt min.). @ -None done CT interpreted by me (1pt min.). @ -None done U/S interpreted by me (1pt. min.). @ -None done What testing was considered but not performed or refused? (CT, X-rays, U/S, labs)? Why? @ -None What meds were considered but not given or refused? Why? @ -None Did you discuss the management of the patient with other professionals (professionals i.e. Dr., PA, COMPUTER SECURITY MANAGER, lab, RT, psych nurse, high school social studies teacher, leach runner, teacher, assurance officer, family independence case manager)? Give summary @ -No Was smoking cessation discussed for >3mins.? @ -No Was critical care preformed (if so, how long)? @ -No Were there social determinants of health that impacted care today? How? (Homelessness, low income, unemployed, alcoholism, drug addiction, transportation, low edu. Level, literacy, decrease access to med. care, retirement, rehab)? @ -No Was there de-escalation of care discussed even if they declined (Discuss DNR or withdrawal of care, Hospice)? DNR status @ -No What co-morbidities impacted this encounter? (DM, HTN, Smoking, COPD, CAD, Cancer, CVA, ARF, Chemo, Hep., AIDS, mental health diagnosis, sleep apnea, morbid obesity)? @ -None Was patient admitted / discharged? Hospital course, mention meds given and route, prescriptions, significant lab abnormalities, going to OR and other pertinent info. @ -[48-year-old female presenting with pain and swelling near the anus. She has a 2 cm fluctuant abscess without induration or cellulitis. There is a soft fluctuant center and I was able to aspirate with 18-gauge needle and received significant amount of pus. Patient started on Augmentin and given follow-up with general surgery. Undiagnosed new problem with uncertain prognosis? @ -No Drug Therapy requiring intensive monitoring for toxicity (Heparin, Nitro, Insulin, Cardizem)? @ -No Were any procedures done? @ -[Yes, needle aspiration of perianal abscess Diagnosis/symptom? @ -Perianal abscess Acute, or Chronic, or Acute on Chronic? @ -Acute Uncomplicated (without systemic symptoms) or Complicated (systemic symptoms)? @ -Default Side effects of treatment? @ -No Exacerbation, Progression, or Severe Exacerbation? @ -No Poses a threat to life or bodily function? How? (Chest pain, USA, ID, pneumonia, PE, COPD, DKA, ARF, appy, cholecystitis, CVA, Diverticulitis, Homicidal, Suicidal, threat to staff... and all critical care pts) @Low risk at this time Disposition Clinical Impression: Perianal abscess Disposition: HOME SELF-CARE Condition: Good Prescriptions: Clindamycin [Cleocin] 300 mg PO TID #42 cap Is patient prescribed a controlled substance at d/c from ED?: No Referrals: Onofre Amin MD [Primary Care Provider] - 1-2 days Ricardo Dalal MD [Medical Doctor] - 1-2 days Time of Disposition: 08:12
[2024-01-13 07:51] VITALS: BP 135/85; PULSE 102; RESP 16; TEMP 99
[2024-01-13] MEDS: LIDOCAINE 1% INJ 10MG/ML (20 ML MDV) SQ ONE (08:24)
== END 2024-01-13 08:37 | disposition home or self-care (01) ==
LOC: EC 07:17
DX: K61.0 Anal abscess (principal); Z87.891 Personal history of nicotine dependence; Z88.0 Allergy status to penicillin; Z88.8 Allergy status to other drugs, medicaments and biological substances
CPT/HCPCS: 46050; 99282; J2001

== ENCOUNTER → 2024-02-03 | Outpatient (CLI) | payer MEDICAID ==
[2024-02-03 08:54] LABS: Appearance,Urine Clear (Clear); Bilirubin,Urine Negative (Negative); Blood,Urine Negative (Negative); Color,Urine Colorless; Glucose,Urine (UA) Negative (Negative); Ketones,Urine Negative (Negative); Leukocyte Esterase,Urine Negative (Negative); Nitrite,Urine Negative (Negative); Protein,Urine Negative (Negative); Specific Gravity,Urine 1.016 (1.001-1.035); Urobilinogen,Urine <2.0 mg/dL (<2.0)
[2024-02-03 14:20] LABS: Basophils # (A) 0.07 X 10*3/uL (0.00-0.10); Basophils % (A) 0.7 %; Eosinophils # (A) 0.26 X 10*3/uL (0.04-0.35); Eosinophils % (A) 2.6 %; HCT 41.3 % (37.2-46.3); HGB 13.3 g/dL (12.0-15.0); Lymphocytes # (A) 2.05 X 10*3/uL (0.90-5.00); Lymphocytes % (A) 20.8 %; MCH 28.1 pg (27.0-32.0); MCHC 32.2 g/dL (32.0-37.0); MCV 87.3 FL (80.0-97.0); Mean Platelet Volume 10.2 FL (9.5-12.2); Monocytes # (A) 0.73 X 10*3/uL (0.20-1.00); Monocytes % (A) 7.4 %; NRBC Per 100 WBC 0 X 10*3/uL (0.00-0.01); Neutrophils # (A) 6.72 X 10*3/uL (1.80-7.70); Neutrophils % (A) 68.2 %; Platelet Count 190 X 10*3/uL (140-440); RBC 4.73 X 10*6/uL (4.10-5.20); RDW 13.2 % (11.5-14.5); WBC 9.86 X 10*3/uL (4.50-10.00)
[2024-02-03 14:54] LABS: ALT 30 U/L (8-44); AST 19 U/L (13-35); Albumin 4.2 g/dL (3.8-4.9); Alkaline Phosphatase 141 U/L (41-126); BUN/Creat Ratio 18.86 Ratio (12.00-20.00); Blood Urea Nitrogen 13.2 mg/dL (9.0-27.0); Calcium 9.1 mg/dL (8.7-10.3); Carbon Dioxide 23.8 mmol/L (21.6-31.8); Chloride 102 mmol/L (96-109); Chol/HDL Ratio 2.68 Ratio; Globulin 2.8 g/dL (1.6-3.3); Glucose 100 mg/dL (70-110); LDL Cholesterol,Calculated 88.9 mg/dL (0.0-131.0); Magnesium 1.9 mg/dL (1.5-2.4); Potassium 4.5 mmol/L (3.5-5.5); Sodium 138 mmol/L (135-145); Total Bilirubin 0.4 mg/dL (0.3-1.2); Uric Acid 4.6 mg/dL (2.9-7.7); VLDL Calculation 16.26 mg/dL (5.00-40.00)
[2024-02-03 14:56] LABS: Follicle Stimulating Hormone 52.5 mIU/mL; Luteinizing Hormone 38.5 mIU/mL
== END | disposition home or self-care (01) ==
LOC: LABWHC1 08:16
PROVIDERS: ATTEND Internal Medicine
DX: Z00.00 Encounter for general adult medical examination without abnormal findings (principal); I10 Essential (primary) hypertension; E78.2 Mixed hyperlipidemia; E55.9 Vitamin D deficiency, unspecified; R73.01 Impaired fasting glucose; R42 Dizziness and giddiness; Z78.0 Asymptomatic menopausal state
CPT/HCPCS: 36415; 80053; 80061; 81003; 82652; 82670; 83001; 83002; 83036; 83735; 84443; 84550; 85025

== ENCOUNTER → 2024-05-07 | Outpatient (CLI) | payer MEDICAID | END | disposition home or self-care (01) | LOC: LABWHC1 14:55 | PROVIDERS: ATTEND Physician Assistant | DX: L40.0 Psoriasis vulgaris (principal) | CPT/HCPCS: 36415; 86480 ==

== ENCOUNTER → 2024-08-06 | Outpatient (CLI) | payer MEDICAID ==
--- NOTE | 2024-08-10 13:35 | MM ---
Reason for Exam: Screening (asymptomatic). Last mammogram was performed 1 year(s) and 1 month(s) ago. Patient History: Menarche at age 12. First Full-Term at age 35. Late child-bearing (after 30). Perimenopausal. Hormonal Contraceptives for 14 years from age 20 until age 34. 11/10/2009, Benign Core Biopsy on the right side. Last menstrual period: 10/01/2023 Risk Values: Nelsy 5 year model risk: 1.6%. NCI Lifetime model risk: 14.2%. Prior Study Comparison: 03/27/2022 Left MG 3D work up w/cad LT, [facility]. 10/01/2022 Left MG 3D diag mammo w/cad LT, [facility]. 06/18/2023 Bilateral MG 3D diag mammo w/cad [facility], [facility]. Tissue Density: The breasts are heterogeneously dense, which may obscure small masses. Findings: Analyzed By CAD. Asymmetric density superior left MLO view is unchanged. Microclip anterior right breast from prior biopsy. A few scattered benign round and punctate calcifications redemonstrated on the left. There is no suspicious group of microcalcifications or new suspicious mass in either breast. Overall Assessment: Benign, BI-RAD 2 Management: Screening Mammogram of both breasts in 1 year. . Patient should continue monthly self-breast exams. A clinical breast exam by your physician is recommended on an annual basis. This exam should not preclude additional follow-up of suspicious palpable abnormalities. Note on Nelsy scores and lifetime risk: 1. A Nelsy score greater than 3% is considered moderate risk. If this is the case, consider specialist referral to assess eligibility for a risk reducing agent. 2. If overall lifetime risk for the development of breast cancer is 20% or higher, the patient may qualify for future screening with alternating mammogram and breast MRI. [facility], , 08/10/2024 1:32 PM. Electronically signed and approved by: Miguel A Elizabeth M.D. Radiologist
== END | disposition home or self-care (01) ==
LOC: RADMAMWWP 08:27
PROVIDERS: ATTEND Internal Medicine
DX: Z12.31 Encounter for screening mammogram for malignant neoplasm of breast (principal); R92.333 Mammographic heterogeneous density, bilateral breasts
CPT/HCPCS: 77063; 77067

== ENCOUNTER → 2024-10-29 | Outpatient (CLI) | payer MEDICAID ==
--- NOTE | 2024-10-29 09:33 | US ---
EXAMINATION TYPE: US liver DATE OF EXAM: 10/29/2024 COMPARISON: NONE CLINICAL INDICATION: Female, 49 years old with history of R74.8 ABNORMAL LEVELS OF OTHER SERUM ENZYME S; Hx HTN, Patient denies any other signs, symptoms, or relevant history TECHNIQUE: Grayscale and color Doppler imaging of the right upper quadrant was performed. FINDINGS: EXAM MEASUREMENTS: Liver Length: 19.3 cm Gallbladder Wall: 0.2 cm CBD: 0.3 cm Right Kidney: 11.1 x 4.6 x 4.4 cm Pancreas: wnl Liver: wnl Gallbladder: wnl Evidence for sonographic Greer's sign: No CBD: wnl Right Kidney: wnl IMPRESSION: No evidence for acute process. [facility], , 10/29/2024 9:30 AM
== END | disposition home or self-care (01) ==
LOC: RADUSWWP 08:42
PROVIDERS: ATTEND Internal Medicine
DX: I10 Essential (primary) hypertension (principal); R74.8 Abnormal levels of other serum enzymes
CPT/HCPCS: 76705

== ENCOUNTER → 2024-12-17 | Outpatient (CLI) | payer MEDICAID ==
--- NOTE | 2024-12-17 09:14 | MR ---
EXAMINATION TYPE: MR brain and iac wo/w con DATE OF EXAM: 12/17/2024 8:40 AM COMPARISON: CT brain 02/03/2023 CLINICAL INDICATION: Female, 49 years old with history of R42 DIZZINESS AND GIDDINESS, Migraines, jillian tigo. TECHNIQUE: Multiplanar, multisequence images of the brain and brainstem were acquired before and aft er administration of 8 cc Gadobutrol. Diffusion weighted imaging was performed. Additional coned-d own sequences through the internal auditory canals and posterior cranial fossa before and after IV co ntrast administration. FINDINGS: Diffusion weighted images demonstrate no evidence of an acute ischemic lesion in the brain. T2/FLAIR weighted sequences show no white matter signal abnormality. Gradient sequence shows no suspi cious susceptibility to suggest previous intracranial microbleeds. Midline structures appear normal. The craniocervical junction is normal. There is very mild volume loss overlying the bilateral cerebral convexities. No hydrocephalus. There is no evidence of an acute intracranial hemorrhage, infarct, mass, mass-effect or an extra-axia l fluid collection. There is no cerebellopontine angle mass. The internal auditory canals are symmetric. Brainstem and skull base abnormalities are not seen. Post contrast images demonstrate no evidence of pathologic enhancement in the posterior cranial soo a or the internal auditory canals. There is no abnormal enhancement of the labyrinths. Possible slight asymmetric thickening along the inferior aspect of the right tympanic membrane, refer to axial series 1001 image 7 and 8. Correlate with direct inspection. Mild mucosal thickening throughout the ethmoid air cells and along the left maxillary sinus. Globes a re intact. IMPRESSION: 1. No abnormal T2 white matter changes. No acute intracranial abnormality seen. No abnormal intracran ial enhancement detected. 2. Possible slight asymmetric thickening along the inferior aspect of the right tympanic membrane. Co rrelate with direct inspection. 3. Otherwise, no specific abnormality in acoustic MRI. 4. Mild chronic ethmoid and left maxillary sinus disease. [facility], , 12/17/2024 9:11 AM
== END | disposition home or self-care (01) ==
LOC: RADMRIMAIN 07:33
PROVIDERS: ATTEND Otolaryngology Sleep Medicine
DX: J32.0 Chronic maxillary sinusitis (principal); R42 Dizziness and giddiness
CPT/HCPCS: 70553; A9585

== ENCOUNTER → 2025-02-25 | Outpatient (CLI) | payer MEDICAID ==
[2025-02-25 15:28] LABS: Basophils # (A) 0.07 X 10*3/uL (0.00-0.10); Basophils % (A) 1.1 %; Eosinophils # (A) 0.28 X 10*3/uL (0.04-0.35); Eosinophils % (A) 4.3 %; HCT 39.4 % (37.2-46.3); HGB 12.8 g/dL (12.0-15.0); Immature Grans, Automated 0.50 %; Lymphocytes # (A) 2.40 X 10*3/uL (0.90-5.00); Lymphocytes % (A) 36.8 %; MCH 28.5 pg (27.0-32.0); MCHC 32.5 g/dL (32.0-37.0); MCV 87.8 FL (80.0-97.0); Monocytes # (A) 0.65 X 10*3/uL (0.20-1.00); Monocytes % (A) 10.0 %; NRBC Per 100 WBC 0 X 10*3/uL (0.00-0.01); Neutrophils # (A) 3.10 X 10*3/uL (1.80-7.70); Neutrophils % (A) 47.3 %; Platelet Count 209 X 10*3/uL (140-440); RBC 4.49 X 10*6/uL (4.10-5.20); RDW 13.2 % (11.5-14.5); WBC 6.53 X 10*3/uL (4.50-10.00)
[2025-02-25 15:52] LABS: ALT 20 U/L (8-44); AST 19 U/L (13-35); Albumin 4.1 g/dL (3.8-4.9); Albumin/Globulin Ratio 1.58 Ratio (1.60-3.17); Alkaline Phosphatase 134 U/L (41-126); Anion Gap 10.40 mmol/L (4.00-12.00); BUN/Creat Ratio 21.57 Ratio (12.00-20.00); Blood Urea Nitrogen 15.1 mg/dL (9.0-27.0); Calcium 8.8 mg/dL (8.7-10.3); Carbon Dioxide 26.6 mmol/L (21.6-31.8); Chloride 103 mmol/L (96-109); Cholesterol 140.00 mg/dL (0.00-200.00); Globulin 2.6 g/dL (1.6-3.3); Glucose 90 mg/dL (70-110); HDL Cholesterol 53.30 mg/dL (40.00-60.00); LDL Cholesterol,Calculated 62.5 mg/dL (0.0-131.0); Magnesium 2.0 mg/dL (1.5-2.4); Potassium 4.2 mmol/L (3.5-5.5); Sodium 140 mmol/L (135-145); Total Protein 6.7 g/dL (6.2-8.2); Triglycerides 121.00 mg/dL (0.00-149.00); Uric Acid 6.2 mg/dL (2.9-7.7); VLDL Calculation 24.20 mg/dL (5.00-40.00)
[2025-02-25 19:50] LABS: Bilirubin,Urine Negative (Negative); Blood,Urine Negative (Negative); Color,Urine Yellow (Yellow); Ketones,Urine Negative (Negative); Nitrite,Urine Negative (Negative); PH, Urine 7.5; Specific Gravity,Urine 1.015 (1.001-1.030); Urobilinogen,Urine 0.2 E.U./DL
[2025-02-25 20:01] LABS: Bacteria,Urine None Seen (None Seen)
== END | disposition home or self-care (01) ==
LOC: LABWHC1 09:44
DX: Z00.00 Encounter for general adult medical examination without abnormal findings (principal); I10 Essential (primary) hypertension; E78.2 Mixed hyperlipidemia; E55.9 Vitamin D deficiency, unspecified
CPT/HCPCS: 36415; 80053; 80061; 81001; 82306; 83036; 83735; 84443; 84550; 85025